=== PATIENT | female | born 1965 | race African-American/Black ===

== ENCOUNTER 2017-12-07 23:16 | Emergency (ER) | payer MEDICAID, OTHER ==
[~2017-12-07] VITALS: Ht 172.7 cm; Wt 85.3 kg
[2017-12-08 00:36] LABS: Basophils # (auto) 0 uL; Basophils % (auto) 0.8 % (0.0-2.0); Eosinophils # (auto) 0.1 uL; Eosinophils % (auto) 2.2 % (0.0-7.0); Hematocrit 41.2 % (36.0-46.0); Hemoglobin 13.7 g/dL (12.2-16.2); Lymphocytes # (auto) 2.6 uL; Lymphocytes % (auto) 49.1 % (10.0-50.0); Mean Corpuscular Hemoglobin 29.9 pg (28.0-32.0); Mean Corpuscular Hgb Conc. 33.2 g/dL (32.0-36.0); Mean Corpuscular Volume 90.2 fL (80.0-100.0); Monocytes # (auto) 0.3 uL; Monocytes % (auto) 5.9 % (0.0-12.0); Neutrophils # (auto) 2.2 uL; Nucleated Red Blood Cells % 0.2 %; Platelet Count (auto) 287 10^3/uL (140-450); Red Blood Cells 4.56 10^6/uL (4.0-5.20); Red Cell Distribution Width 15.2 % (11.8-14.3); White Blood Cell 5.2 10^3/uL (4.4-10.8)
[2017-12-08 00:59] LABS: Albumin 3.7 g/dL (3.4-5.0); Potassium 3.9 mmol/L (3.5-5.1)
[2017-12-08 01:02] LABS: Bilirubin, Total 0.2 mg/dL (0.2-1.0); Total Protein 7.7 g/dL (6.4-8.2)
[2017-12-08 03:06] LABS: Urine Bacteria MOD /hpf (None Seen); Urine Blood Negative /uL (Negative); Urine Mucus FEW (None Seen); Urine Specific Gravity 1.019 (1.001-1.035); Urine WBC 24 /hpf (0 - 5)
[2017-12-08] MEDS ORDERED: KETOROLAC TROMETH 60MG/2ML VIAL IM ONE (06:45)
[2017-12-08 07:36] VITALS: BP 156/92
== END 2017-12-08 07:46 | disposition home or self-care (01) ==
LOC: ER 23:17
DX: N61.0 Mastitis without abscess (principal); N39.0 Urinary tract infection, site not specified
CPT/HCPCS: 36415; 71045; 80053; 81001; 84702; 85025; 96372; 99285; J1885

== ENCOUNTER 2018-08-03 06:27 | Emergency (ER) | payer OTHER ==
[~2018-08-03] VITALS: Ht 172.7 cm; Wt 83.9 kg
[2018-08-03 06:50] VITALS: BP 115/76
== END 2018-08-03 08:11 | disposition home or self-care (01) ==
LOC: ER 06:31
DX: M54.41 Lumbago with sciatica, right side (principal); M47.896 Other spondylosis, lumbar region
CPT/HCPCS: 72110

== ENCOUNTER 2019-06-08 08:40 | Emergency (ER) | payer OTHER ==
[~2019-06-08] VITALS: Ht 172.7 cm; Wt 90.7 kg
[2019-06-08 08:44] VITALS: BP 191/103
[2019-06-08] MEDS ORDERED: KETOROLAC TROMETH 60MG/2ML VIAL IM ONE (10:00)
== END 2019-06-08 10:09 | disposition home or self-care (01) ==
LOC: ER 08:40
DX: G89.29 Other chronic pain (principal); M25.511 Pain in right shoulder
CPT/HCPCS: J1885

== ENCOUNTER 2025-07-03 14:06 | Emergency (ER) | payer MEDICAID, OTHER ==
[~2025-07-03] VITALS: Ht 172.7 cm; Wt 73.1 kg
[2025-07-03 14:16] VITALS: BP 145/88; PULSE 83; RESP 18; TEMP 98; O2SAT 98
== END 2025-07-03 16:18 | disposition left against medical advice (07) ==
LOC: ER 14:06
DX: M25.562 Pain in left knee (principal); Z53.21 Procedure and treatment not carried out due to patient leaving prior to being seen by health care provider